=== PATIENT | female | born 1950 | race Caucasian/White ===

== ENCOUNTER 2017-07-08 17:07 | Emergency (ER) | payer MEDICARE, OTHER, SELFPAY ==
[2017-07-08 17:12] VITALS: BP 130/86; PULSE 70; RESP 20; TEMP 36.9; O2SAT 97; BMI 24.7
--- NOTE | 2017-07-08 17:18 | ED_ITS ---
HPI - Chest Pain <JALYN Voss - Last Filed: 07/08/17 21:54> General Chief Complaint: Chest Pain Stated Complaint: cant stop coughing,chest hurts Time Seen by Provider: 07/08/17 17:18 History of Present Illness HPI narrative: 67-year-old female here with a history of having prior pulmonary emboli. Last episode was spring. She reports she has had respiratory complications since that timeframe. She reports that she recently was in the floor for a few weeks and developed a cough approximately 3 weeks ago and has had it since. She reports having productive cough. She denies having fever or chills. She reports that the cough has not resolved at all since she started. She reports that the cough is causing her day of anterior chest wall pain. She denies shortness of breath. She states that she does not have chest pain without the cough. Patient is ambulatory into the emergency room. No nausea or vomiting. No other concerns or complaints. Related Data Home Medications Medication Instructions Recorded Confirmed clonazepam 2 mg PO DAILY 07/08/17 07/08/17 zolpidem 10 mg PO QHS 07/08/17 07/08/17 Previous Rx's Medication Instructions Recorded albuterol sulfate 1 puff INHALATION Q4-6H PRN #8 gram 07/08/17 benzonatate [Tessalon Perles] 100 mg PO TID PRN #20 cap 07/08/17 doxycycline hyclate 100 mg PO BID #14 tab 07/08/17 Allergies Allergy/AdvReac Type Severity Reaction Status Date / Time No Known Drug Allergies Allergy Verified 07/08/17 17:22 Review of Systems <JALYN Voss - Last Filed: 07/08/17 21:54> Constitutional Denies chills, Denies fever(s), Denies lethargy and Denies weakness Eyes Denies change in vision, Denies eye discharge, Denies irritation and Denies loss of vision ENT Ears, Nose, Mouth, and Throat: Denies change in voice, Denies neck pain and Denies sore throat Respiratory Reports cough and Reports pain with cough Gastrointestinal Gastrointestinal: Denies abdominal pain, Denies change in bowel habits, Denies diarrhea, Denies nausea and Denies vomiting Musculoskeletal Denies neck pain Integumentary/Breasts Denies pruritus, Denies erythema, Denies rash and Denies wounds Neurologic Denies loss of vision and Denies weakness Exam <JALYN Voss - Last Filed: 07/08/17 21:54> Initial Vital Signs Initial Vital Signs: Vital Signs Temperature 98.4 F 07/08/17 17:12 Pulse Rate 70 07/08/17 17:12 Respiratory Rate 20 07/08/17 17:12 Blood Pressure 130/86 H 07/08/17 17:12 Pulse Oximetry 97 07/08/17 17:12 Const General: cooperative and well developed Nutritional Appearance: well nourished Orientation: alert, awake, oriented x3 and not confused HENAK Mouth: oral mucosae normal, oropharynx normal and moist mucous membranes Eyes Conjunctivae: conjunctivae normal Sclera: sclerae normal Pupils: PERRL EOM: EOM intact bilaterally Resp Effort & Inspection: normal respiratory effort and able to speak in complete sentences Auscultation: crackles (Right lower feels crackling on inspiration) on the right and no wheezes Cardio Rate: regular rate Rhythm: regular rhythm Heart Sounds: no click, no gallops, no murmurs and no rubs Pulses: normal peripheral pulses Skin General: no rashes or lesions noted, No jaundice and No petechiae <DO Hugh Sosa Last Filed: 07/09/17 03:21> Initial Vital Signs Initial Vital Signs: Vital Signs Temperature 98.4 F 07/08/17 17:12 Pulse Rate 70 07/08/17 17:12 Respiratory Rate 20 07/08/17 17:12 Blood Pressure 130/86 H 07/08/17 17:12 Pulse Oximetry 97 07/08/17 17:12 Course <JALYN Voss - Last Filed: 07/08/17 21:54> Orders Ordered: Discontinued Medications Albuterol/Ipratropium (Duoneb) 3 ml INH NOW ONE Stop: 07/08/17 17:43 Last Admin: 07/08/17 19:22 Dose: 3 ml Vital Signs - 8 hr 07/08/17 19:23 07/08/17 19:37 07/08/17 20:19 Pulse Rate 64 120 H 82 Respiratory Rate 16 20 Blood Pressure [Right Arm] 114/65 115/55 L Pulse Oximetry 100 <DO Hugh Sosa Last Filed: 07/09/17 03:21> Orders Ordered: Discontinued Medications Albuterol/Ipratropium (Duoneb) 3 ml INH NOW ONE Stop: 07/08/17 17:43 Last Admin: 07/08/17 19:22 Dose: 3 ml Vital Signs - 8 hr 07/08/17 19:23 07/08/17 19:37 07/08/17 20:19 Pulse Rate 64 120 H 82 Respiratory Rate 16 20 Blood Pressure [Right Arm] 114/65 115/55 L Pulse Oximetry 100 MDM - Chest Pain <JALYN Voss - Last Filed: 07/08/17 21:54> Lab Data Result diagrams: 07/08/17 17:42 Lab Results 07/08/17 07/08/17 07/08/17 Range/Units 17:42 17:42 17:42 WBC 3.0 L (4.5-11.0) X10^3/uL RBC 4.03 (4.0-5.2) X10^6/uL Hgb 12.7 (12.0-16.0) g/dL Hct 37.5 (36-46) % MCV 93.0 (80-100) fL MCH 31.6 (26-34) PG MCHC 34.0 (30-36) % RDW 14.0 (11.6-14.8) % Plt Count 183 (150-400) X10^3/uL Neut % (Auto) 55.0 (50-75) % Lymph % (Auto) 32.4 (25-40) % [place] % (Auto) 11.6 (3-14) % Eos % (Auto) 0.6 L (2-4) % Baso % (Auto) 0.4 (0-2) % Neut # (Auto) 1700 L (8320-8710) /uL APTT 35 (26.4-36.2) SECONDS D-Dimer 484 H (<231) ng/mL Total Creatine Kinase 48 (30-135) U/L CK-MB (CK-2) TNP Troponin I < 0.012 (0.01-0.034) ng/mL Imaging Data Chest x-ray: Radiologist's impression: PROCEDURE: XR CHEST 2V INDICATIONS: Cough for last few weeks TECHNIQUE: 2 views of the chest were acquired. COMPARISON: None. FINDINGS: Surgical changes and devices: None. Lungs and pleura: No pleural effusions or pneumothorax. Lungs are clear. Mediastinum: Mediastinal contours are normal. Heart size is normal. Bones and chest wall: No suspicious bony abnormalities. Bilateral breast prostheses are noted with rim calcification, left greater than right. Soft tissues appear unremarkable. IMPRESSION: 1. No acute cardiopulmonary disease. 2. Bilateral breast prostheses with rim calcification, left and right. Dictated by: Ming Geiger M.D. on 07/08/2017 at 18:37 Approved by: Ming Geiger M.D. on 07/08/2017 at 18:38 ECG Data Interpretation: EKG shows normal sinus rhythm with no ST elevation or depression. No ectopy. Ventricular rate is 66. Pr interval 146. QRS duration is 75. QT of 399 MDM Narrative Medical decision making narrative: Chest x-ray was obtained was negative for any acute findings. D-dimer resulted at for a for below age adjusted D-dimer of level of 660. EKG shows sinus rhythm with no ectopy or ST elevation or depression. Cardiac enzymes were obtained were negative. Other lab results were unremarkable. Signs and symptoms presents as a bronchitis however due to length of symptoms will empirically treat for walking pneumonia with doxycycline. Sputum culture is pending. She is encouraged to follow up with the primary care provider next few days for re-evaluation and continue pursuing a paramedic rn referral. For any worsening symptoms return to the emergency room. <Gilson Mckeon DO - Last Filed: 07/09/17 03:21> Lab Data Lab Results 07/08/17 07/08/17 07/08/17 Range/Units 17:42 17:42 17:42 WBC 3.0 L (4.5-11.0) X10^3/uL RBC 4.03 (4.0-5.2) X10^6/uL Hgb 12.7 (12.0-16.0) g/dL Hct 37.5 (36-46) % MCV 93.0 (80-100) fL MCH 31.6 (26-34) PG MCHC 34.0 (30-36) % RDW 14.0 (11.6-14.8) % Plt Count 183 (150-400) X10^3/uL Neut % (Auto) 55.0 (50-75) % Lymph % (Auto) 32.4 (25-40) % [place] % (Auto) 11.6 (3-14) % Eos % (Auto) 0.6 L (2-4) % Baso % (Auto) 0.4 (0-2) % Neut # (Auto) 1700 L (6413-2905) /uL APTT 35 (26.4-36.2) SECONDS D-Dimer 484 H (<231) ng/mL Total Creatine Kinase 48 (30-135) U/L CK-MB (CK-2) TNP Troponin I < 0.012 (0.01-0.034) ng/mL Discharge Plan Departure Patient Disposition: Home, Self-Care Clinical Impression: Atypical pneumonia Discharge Date/Time: 07/08/17 20:00 Interventions: ED Discharge Assessment Last Done: 07/08/17 20:23 Instructions: DI for Cough -- Adult Activity Restrictions/Additional Instructions: Laboratory results and imaging today were unremarkable. Due to length of symptoms and a productive cough will empirically treat for pneumonia. You have been placed on antibiotic use as directed. Follow up with primary care provider in the next few days for re-evaluation. For any worsening symptoms return to the emergency room. Prescriptions: New doxycycline hyclate 100 mg tablet 100 mg PO BID Qty: 14 RF: 0 albuterol sulfate 90 mcg/actuation HFA aerosol inhaler 1 puff INHALATION Q4-6H PRN (Reason: shortness of breath or wheezing) Qty: 8 RF: 0 benzonatate [Tessalon Perles] 100 mg capsule 100 mg PO TID PRN (Reason: cough) Qty: 20 RF: 0 No Action clonazepam 2 mg tablet 2 mg PO DAILY RF: 0 zolpidem 10 mg tablet 10 mg PO QHS RF: 0 Referrals: Rich Jorge MD [Non-Staff] - <Gilson Mckeon DO - Last Filed: 07/09/17 03:21> Cosign ED Attending Shiraature Attestation: I was immediately available in the department for consultation. Documentation has been reviewed. I agree with assessment and plan.
[2017-07-08 17:30] VITALS: BP 111/67; PULSE 66; O2SAT 94
--- NOTE | 2017-07-08 17:41 | DI.RAD.S_ITS ---
PROCEDURE: XR CHEST 2V INDICATIONS: Cough for last few weeks TECHNIQUE: 2 views of the chest were acquired. COMPARISON: None. FINDINGS: Surgical changes and devices: None. Lungs and pleura: No pleural effusions or pneumothorax. Lungs are clear. Mediastinum: Mediastinal contours are normal. Heart size is normal. Bones and chest wall: No suspicious bony abnormalities. Bilateral breast prostheses are noted with rim calcification, left greater than right. Soft tissues appear unremarkable. IMPRESSION: 1. No acute cardiopulmonary disease. 2. Bilateral breast prostheses with rim calcification, left and right. Dictated by: Ming Geiger M.D. on 07/08/2017 at 18:37 Approved by: Ming Geiger M.D. on 07/08/2017 at 18:38
[2017-07-08 18:16] LABS: Add Manual Diff / Slide Review NO; Basophils Percent Auto 0.4 % (0-2); Eosinophils Percent Auto 0.6 % (2-4); Hematocrit 37.5 % (36-46); Hemoglobin 12.7 g/dL (12.0-16.0); Lymphocytes Percent Auto 32.4 % (25-40); Mean Corpuscular Hemoglobin 31.6 PG (26-34); Monocytes Percent Auto 11.6 % (3-14); Neutrophils Absolute Auto 1700 /uL (3000-5900); Platelet Count 183 X10^3/uL (150-400); Red Blood Cell Count 4.03 X10^6/uL (4.0-5.2)
[2017-07-08 18:25] LABS: D Dimer 484 ng/mL (<231); PTT Partial Thromboplastin Tim 35 SECONDS (26.4-36.2)
[2017-07-08 18:27] LABS: Creatine Kinase 48 U/L (30-135)
[2017-07-08 18:30] VITALS: BP 121/65; PULSE 67; RESP 15; O2SAT 98
[2017-07-08 18:41] LABS: Troponin I < 0.012 ng/mL (0.01-0.034)
[2017-07-08] MEDS: ALBUTEROL/IPRATROPIUM 3 ML AMPUL INH (19:22)
[2017-07-08 19:23] VITALS: PULSE 64; RESP 16
[2017-07-08 19:37] VITALS: BP 114/65; PULSE 120
[2017-07-08 20:19] VITALS: BP 115/55; PULSE 82; RESP 20; O2SAT 100
== END 2017-07-08 20:00 | disposition home or self-care (01) ==
PROVIDERS: Emergency Provider Nurse Practitioner Family
DX: J18.9 Pneumonia, unspecified organism (principal)
CPT/HCPCS: 36591; 71046; 82550; 84484; 85025; 85379; 85730; 87070; 87205; 93005; 94640; 99283; 99285

== ENCOUNTER → 2019-10-18 13:46 | Outpatient (CLI) | payer MEDICARE, OTHER, SELFPAY ==
--- NOTE | 2019-10-18 | DI.MRI.S_ITS ---
PROCEDURE: MR THORACIC SPINE WO CON INDICATIONS: Dorsalgia, unspecified TECHNIQUE: Noncontrast sagittal T1 spine echo and T2 fast spin echo, sagittal STIR, axial T1 and T2 fast spin echo through the thoracic spine. COMPARISON: None. FINDINGS: Image quality: Excellent. Alignment and Curvature: There is normal bony alignment. Bone Marrow: Marrow is of normal overall signal except for presence of a small vertebral body hemangioma at the posterior midline inferiorly at T6. No acute vertebral body compression fractures. No prior chronic compression fracture is found. Mild intervertebral degenerative disc disease is noted as indicated by slight disc height reduction and disc desiccation over the middle and lower thirds of the thoracic spine. No area of nerve root impingement is found. Spinal Cord: Visualized spinal cord is normal in size and signal. Paraspinous Soft Tissues: No paravertebral masses. Miscellaneous: On axial images, central canal and foramina appear widely patent at all scanned levels. IMPRESSION: A mild degree of degenerative disc height reduction and disc desiccation over the middle and lower thirds of the thoracic spine is present. No disc bulge or herniation, no focal nerve root impingement. Incidental note is made of a small vertebral body hemangioma at the posterior inferior middle 3rd T6 vertebral body marrow space, incidental finding. Dictated by: Cristhian Rizvi M.D. on 10/18/2019 at 15:15 Approved by: Cristhian Rizvi M.D. on 10/18/2019 at 15:19
== END ==
PROVIDERS: PCP Physician Assistant; Referring Provider Physician Assistant; Visit Provider Physical Medicine & Rehabilitation Pain Medicine
DX: M54.9 Dorsalgia, unspecified (principal); M51.34 Other intervertebral disc degeneration, thoracic region
CPT/HCPCS: 72146

== ENCOUNTER 2022-08-02 15:29 | Emergency (ER) | payer MEDICARE, OTHER, SELFPAY ==
[2022-08-02 15:43] VITALS: BP 150/69; PULSE 86; RESP 16; TEMP 36.4; O2SAT 95; BMI 34.5
--- NOTE | 2022-08-02 15:51 | DI.RAD.S_ITS ---
PROCEDURE: XR CHEST 1V INDICATIONS: Shortness of breath TECHNIQUE: One view of the chest was acquired. COMPARISON: [facility], CR, XR CHEST 2V, 07/08/2017, 17:28. FINDINGS: Surgical changes and devices: Stable over time.. Lungs and pleura: Lungs are clear. No pleural effusions or pneumothorax. Mediastinum: Mediastinal contours appear normal. Heart size is normal. Bones and chest wall: No suspicious bony lesions. Overlying soft tissues appear unremarkable. IMPRESSION: Unchanged over time, source of current shortness of breath symptoms is not seen. Dictated by: Cristhian Rizvi M.D. on 08/02/2022 at 16:32 Approved by: Cristhian Rizvi M.D. on 08/02/2022 at 16:32
[2022-08-02 16:56] LABS: INR 1.5 (0.9-1.3); Prothrombin Time 17.4 SECONDS (10.1-12.7)
[2022-08-02 16:57] LABS: Add Manual Diff / Slide Review NO; Basophils Absolute Auto 0 /uL (0-100); Basophils Percent Auto 0.7 % (0-2); Eosinophils Absolute Auto 100 /uL (0-450); Eosinophils Percent Auto 1.8 % (2-4); Hematocrit 37.5 % (36-46); Hemoglobin 12.6 g/dL (12.0-16.0); Lymphocytes Absolute Auto 1400 /uL (1100-4500); Lymphocytes Percent Auto 27.4 % (25-40); Mean Corpuscular HGB Conc 33.6 % (30-36); Mean Corpuscular Hemoglobin 32.6 PG (26-34); Mean Corpuscular Volume 97.1 fL (80-100); Monocytes Absolute Auto 600 /uL (0-900); Monocytes Percent Auto 11.5 % (3-14); Neutrophils Absolute Auto 3000 /uL (1500-7000); Neutrophils Percent Auto 58.6 % (50-75); Platelet Count 245 X10^3/uL (150-400); Red Blood Cell Count 3.86 X10^6/uL (4.0-5.2); Red Cell Distribution Width 14.7 % (11.6-14.8); White Blood Cell Count 5.2 X10^3/uL (4.5-11.0)
[2022-08-02 17:01] LABS: Alanine Aminotransferase 222 IU/L (<35); Albumin 4.4 g/dL (3.5-5.0); Albumin Globulin Ratio 1.3 (1.0-2.8); Alkaline Phosphatase 104 U/L (38-126); Aspartate Aminotransferase 155 IU/L (14-36); BUN Creatinine Ratio 23.7 (6-22); Bilirubin Total 0.6 mg/dL (0.2-1.3); Blood Urea Nitrogen 18 mg/dL (7-17); Calcium 9.7 mg/dL (8.4-10.2); Carbon Dioxide 27 mmol/L (22-32); Chloride 100 mmol/L (98-107); Estimated Glomerular Filt Rate > 60 mL/min (>60); Globulin 3.3 g/dL (1.7-4.1); Glucose 88 mg/dL (80-110); HEMOLYSIS 28 (0-50); Sodium 138 mmol/L (137-145); Total Protein 7.7 g/dL (6.3-8.2)
[2022-08-02 17:02] LABS: Lactate (Lactic Acid) 0.9 mmol/L (0.7-2.1)
[2022-08-02 17:13] LABS: NT-proBNP (BNP-Adult 18+) 28 pg/mL (<125); Troponin I < 0.012 ng/mL (0.01-0.034)
[2022-08-02 17:22] VITALS: PULSE 80; RESP 32; O2SAT 96
--- NOTE | 2022-08-02 17:29 | PC.NURSE ---
iv inserted by another nurse
[2022-08-02 17:32] VITALS: PULSE 91; O2SAT 94
--- NOTE | 2022-08-02 17:36 | PC.NURSE ---
patient states that she had a prescription for lasix that she got for retaining water' 2 years ago. She feels like she has been retaining water so she took 20 mg lasix at 1500 today. She has not been coughing but does sate that she has been getting progressively more sob on exertion over the last 3 days
[2022-08-02 17:51] LABS: D Dimer 410 ng/ml (<500)
[2022-08-02 18:27] LABS: Bacteria Urine None Seen; Culture Indicated Urine Cult Not Indicated; RBC Urine None Seen (0-5/HPF); Squamous Epithelial Cell Urine None Seen (0-5/HPF); WBC Urine None Seen (0-5/HPF)
--- NOTE | 2022-08-02 18:45 | ED_ITS ---
HPI - SOB/Dyspnea General Chief Complaint: Shortness of Breath/Dyspnea Stated Complaint: Not urinating, SOB, Elevated pulse Time Seen by Provider: 08/02/22 17:38 Source: patient and family Mode of arrival: Ambulatory Limitations: no limitations History of Present Illness HPI Narrative: 72-year-old female nonsmoker presents with her in the chief complaint of feeling generally unwell for the past few days and primary concern is that of not urinating for the past day or so. She and her both underwent a rather significant dietary change about 10 days ago and initially she was feeling quite well, pushing fluids but she was on a keto diet and over the past few days became short of breath with exertion had difficulty urinating Related Data Home Medications Medication Instructions Recorded Confirmed clonazepam 2 mg tablet 2 mg PO DAILY 07/08/17 07/08/17 zolpidem 10 mg tablet 10 mg PO QHS 07/08/17 07/08/17 Previous Rx's Medication Instructions Recorded albuterol sulfate 90 mcg/actuation 1 puff inhalation Q4-6H PRN 07/08/17 aerosol inhaler shortness of breath or wheezing #8 grams benzonatate 100 mg capsule 100 mg PO TID PRN cough #20 caps 07/08/17 (Bettie Mueller) doxycycline hyclate 100 mg tablet 100 mg PO BID #14 tabs 07/08/17 Allergies Allergy/AdvReac Type Severity Reaction Status Date / Time acetaminophen AdvReac Intermediate ITCHING Verified 08/02/22 15:50 Opioids - Morphine Analogues AdvReac Intermediate Nausea Verified 08/02/22 15:50 ibuprofen AdvReac Unknown Verified 08/02/22 15:50 Review of Systems Review of Systems Narrative: GENERAL: Denies chills, fatigue, malaise, fever, sweats. HEENT: Denies sinus pain, ear pain, sore throat, difficulty swallowing, dizziness. RESPIRATORY: See HPI CARDIOVASCULAR: Denies chest pain, palpitations, orthopnea, edema, GASTROINTESTINAL: Denies nausea, vomiting, abdominal pain, diarrhea, constipation, melena. : Denies dysuria, frequency, incontinence, hematuria, urinary retention. MUSCULOSKELETAL: denies weakness, joint pain, or bony pain SKIN: Denies rash, skin lesions, or other NEUROLOGIC: Denies weakness, headache, numbness, change in speech, confusion, seizures, incoordination. PSYCHIATRIC: No concerning psychosocial issues. 12 point review of systems is negative except for those stated above Patient History Medical History (Updated 08/02/22 @ 19:04 by Gilson Mckeon DO) Pulmonary embolus Social History Smoking Status: Never smoker Smoking Status: Never smoker alcohol intake frequency: 0-2 drinks per day Substance Use Type: does not use Exam Narrative Exam Narrative: GENERAL: [73] year old patient appears stated age. Well-developed patient, in mild distress. HEAD: Atraumatic. Normocephalic. EYES: Pupils equal round and reactive. Extraocular motions intact. No scleral icterus. No injection or drainage. ENT: Nose without bleeding, purulent drainage. Throat without erythema, tonsillar hypertrophy or exudate. Airway patent. NECK: Trachea midline. Non tender CARDIOVASCULAR: Regular rate and rhythm without murmurs, gallops, or rubs. RESPIRATORY: Clear to auscultation. Breath sounds equal bilaterally. No wheezes, rales, or rhonchi. GASTROINTESTINAL: Abdomen soft, non-tender, nondistended. EXTREMITIES: No edema or joint tenderness. BACK: Nontender without deformity or crepitance. No flank tenderness. NEURO: AOx3. SKIN: No rash or erythema of visible areas Initial Vital Signs Initial Vital Signs: Vital Signs Temperature 97.6 F 08/02/22 15:43 Pulse Rate 86 08/02/22 15:43 Respiratory Rate 16 08/02/22 15:43 Blood Pressure 150/69 H 08/02/22 15:43 Pulse Oximetry 95 08/02/22 15:43 Oxygen Delivery Method Room Air 08/02/22 15:43 Course Course Course Narrative: Patient feeling significant improvement after creating upwards of 400 cc of urine. She is been ambulatory to the restroom, no ongoing shortness of breath, no dizziness, weakness or lightheadedness Orders Ordered: ED Orders 08/02/22 15:07 Urine Microscopic Stat 08/02/22 15:51 XR chest 1V Stat Measure peak expiratory flow ONCE RT Consult Eval and Treat NOW 08/02/22 16:06 EKG-12 Lead Stat 08/02/22 16:40 Complete Blood Count AUTO DIFF Stat Comprehensive Metabolic Panel Stat D Dimer Stat Lactate (Lactic Acid) Stat NT-proBNP (BNP-Adult 18+) Stat Prothrombin Time INR Stat Troponin I Stat Vital Signs Vital signs: Vital Signs - 8 hr 08/02/22 19:37 Pulse Rate 82 Respiratory Rate 14 Blood Pressure 137/63 Pulse Oximetry 96 Oxygen Delivery Method Room Air MDM - SOB/Dyspnea Lab Data 08/02/22 16:40 08/02/22 16:40 Labs: Lab Results 08/02/22 08/02/22 08/02/22 Range/Units 15:07 16:40 16:40 WBC 5.2 (4.5-11.0) X10^3/uL RBC 3.86 L (4.0-5.2) X10^6/uL Hgb 12.6 (12.0-16.0) g/dL Hct 37.5 (36-46) % MCV 97.1 (80-100) fL MCH 32.6 (26-34) PG MCHC 33.6 (30-36) % RDW 14.7 (11.6-14.8) % Plt Count 245 (150-400) X10^3/uL Neut % (Auto) 58.6 (50-75) % Lymph % (Auto) 27.4 (25-40) % [place] % (Auto) 11.5 (3-14) % Eos % (Auto) 1.8 L (2-4) % Baso % (Auto) 0.7 (0-2) % Neut # (Auto) 3000 (3000-2911) /uL Lymph # (Auto) 1400 (7931-9202) /uL [place] # (Auto) 600 (0-900) /uL Eos # (Auto) 100 (0-450) /uL Baso # (Auto) 0 (0-100) /uL PT 17.4 H (10.1-12.7) SECONDS INR 1.5 H (0.9-1.3) D-Dimer (<500) ng/ml Sodium (137-145) mmol/L Potassium (3.4-5.1) mmol/L Chloride (98-107) mmol/L Carbon Dioxide (22-32) mmol/L BUN (7-17) mg/dL Creatinine (0.52-1.04) mg/dL Estimated GFR (>60) mL/min BUN/Creatinine Ratio (6-22) Glucose (80-110) mg/dL Lactate (0.7-2.1) mmol/L Calcium (8.4-10.2) mg/dL Total Bilirubin (0.2-1.3) mg/dL AST (14-36) IU/L ALT (<35) IU/L Alkaline Phosphatase (38-126) U/L Troponin I (0.01-0.034) ng/mL NT-Pro-B Natriuret Pep (<125) pg/mL Total Protein (6.3-8.2) g/dL Albumin (3.5-5.0) g/dL Globulin (1.7-4.1) g/dL Albumin/Globulin Ratio (1.0-2.8) Urine RBC None seen (0-5/HPF) Urine WBC None seen (0-5/HPF) Ur Squamous Epith Cells None seen (0-5/HPF) Urine Bacteria None seen (None) Ur Culture Indicated? Cult not indicated 08/02/22 08/02/22 08/02/22 Range/Units 16:40 16:40 16:40 WBC (4.5-11.0) X10^3/uL RBC (4.0-5.2) X10^6/uL Hgb (12.0-16.0) g/dL Hct (36-46) % MCV (80-100) fL MCH (26-34) PG MCHC (30-36) % RDW (11.6-14.8) % Plt Count (150-400) X10^3/uL Neut % (Auto) (50-75) % Lymph % (Auto) (25-40) % [place] % (Auto) (3-14) % Eos % (Auto) (2-4) % Baso % (Auto) (0-2) % Neut # (Auto) (6519-5878) /uL Lymph # (Auto) (2660-5994) /uL [place] # (Auto) (0-900) /uL Eos # (Auto) (0-450) /uL Baso # (Auto) (0-100) /uL PT (10.1-12.7) SECONDS INR (0.9-1.3) D-Dimer 410 (<500) ng/ml Sodium 138 (137-145) mmol/L Potassium 4.0 (3.4-5.1) mmol/L Chloride 100 (98-107) mmol/L Carbon Dioxide 27 (22-32) mmol/L BUN 18 H (7-17) mg/dL Creatinine 0.76 (0.52-1.04) mg/dL Estimated GFR > 60 (>60) mL/min BUN/Creatinine Ratio 23.7 H (6-22) Glucose 88 (80-110) mg/dL Lactate 0.9 (0.7-2.1) mmol/L Calcium 9.7 (8.4-10.2) mg/dL Total Bilirubin 0.6 (0.2-1.3) mg/dL AST 155 H (14-36) IU/L ALT 222 H (<35) IU/L Alkaline Phosphatase 104 (38-126) U/L Troponin I < 0.012 (0.01-0.034) ng/mL NT-Pro-B Natriuret Pep 28 (<125) pg/mL Total Protein 7.7 (6.3-8.2) g/dL Albumin 4.4 (3.5-5.0) g/dL Globulin 3.3 (1.7-4.1) g/dL Albumin/Globulin Ratio 1.3 (1.0-2.8) Urine RBC (0-5/HPF) Urine WBC (0-5/HPF) Ur Squamous Epith Cells (0-5/HPF) Urine Bacteria (None) Ur Culture Indicated? Urine Dip Bedside Urine Glucose Negative Bedside Urine Bilirubin - Negative Bedside Urine Ketone ++ 40 Urine Specific [place] 1.015 Bedside Urine Occult Blood - Negative Bedside Urine pH 6.0 Bedside Urine Protein - Negative Bedside Urine Urobilinogen - Negative Bedside Urine Nitrite - Negative Bedside Urine Leukocytes - Negative Esterase MDM Narrative Medical decision making narrative: [72] year old patient presents with generally feeling unwell with decreased urine output over the course of at least the day, also leg swelling and SOB with exertion Multiple etiologies for patient's symptoms considered including, but not limited to: [dehydration vs. CHF vs. other Prior Charts reviewed in our EMR Primary Historian: patient Labs reviewed and interpreted by myself: No leukocytosis or left shift, no signs of anemia, D-dimer below age corrected cutoff, no indication to pursue PE as diagnosis, primary electrolytes and renal function within normal. LFTs slightly elevated, likely consequence of dietary change Imaging reviewed: No acute process Patient's symptoms improved over duration of stay with above-stated therapies. Patient is ambulatory through the department and asymptomatic. She states she felt a significant if not complete resolution symptoms after urinating. She is not dizzy nor weak or lightheaded. She has no abdominal pain, jaundice, no fever Findings and discharge diagnosis discussed with patient/family followed by zahira tolliver of understanding Return precautions discussed with patient/family whom verbalize understanding of diagnosis and plan Discharge Plan Departure Patient Disposition: Home Clinical Impression: Elevated liver transaminase level Instructions: Balanced Diet Activity Restrictions/Additional Instructions: *You have been diagnosed with [various symptoms likely related to dietary change. As we discussed he had a very reassuring history and physical exam and labs are reassuring. You had a slight elevation in your liver numbers and urine did demonstrate some ketones, both of which likely related to your dietary change.] *What to do: *Please continue to take your regular medications as directed. [ ] New medication prescriptions sent to your pharmacy: [ ] [ ] New medication written as a paper prescription [ x] No new medications given *Please follow up with your primary care provider in 2-3 days, call for an appointment. Let them know you were seen in the Emergency Department and that we ask that you be seen in follow up. We will electronically transmit a record of today's note if your PCP is in our system *If you do not have a primary care provider please contact the [facility] Resource line at [phone]. They will ask some questions about your medical history and help get you set up with a doctor in the community. *Return to Emergency Department if you should have any new, worsening or concerning symptoms, such as [fever greater than 101 F, shaking chills, worsening pain, persistent vomiting or other bothersome symptoms] Prescriptions: No Action clonazepam 2 mg tablet 2 mg PO DAILY zolpidem 10 mg tablet 10 mg PO QHS doxycycline hyclate 100 mg tablet 100 mg PO BID Qty: 14 0RF albuterol sulfate 90 mcg/actuation HFA aerosol inhaler 1 puff INHALATION Q4-6H PRN (Reason: shortness of breath or wheezing) Qty: 8 0RF Rx Instructions: administer with spacer benzonatate [Tessalon Perles] 100 mg capsule 100 mg PO TID PRN (Reason: cough) Qty: 20 0RF Referrals: Denise German PA-C [Primary Care Provider] - Stand Alone Forms: Patient Portal/API
[2022-08-02 19:37] VITALS: BP 137/63; PULSE 82; RESP 14; O2SAT 96
== END 2022-08-02 19:40 | disposition home or self-care (01) ==
PROVIDERS: Emergency Medicine; Emergency Provider Emergency Medicine; PCP Physician Assistant
DX: R74.01 Elevation of levels of liver transaminase levels (principal); R06.02 Shortness of breath
CPT/HCPCS: 71045; 80053; 81003; 81015; 83605; 83880; 84484; 85025; 85379; 85610; 93005; 99283; 99284

== ENCOUNTER → 2022-09-17 12:43 | Outpatient (CLI) | payer MEDICARE, OTHER, SELFPAY ==
--- NOTE | 2022-09-17 12:46 | DI.MRI.S_ITS ---
PROCEDURE: MR ANKLE LT WO CON INDICATIONS: left peroneal tendon tear TECHNIQUE: Noncontrast sagittal T1 spin echo and T2 fast spin echo with fat saturation, axial proton density fast spin echo and T2 fast spin echo with fat saturation, coronal T1 spin echo and T2 fast spin echo with fat saturation through the ankle/hindfoot. COMPARISON: None. FINDINGS: Image quality: Excellent. Bones and joints: Mild midfoot and hindfoot joint osteoarthritic changes are seen with joint space narrowing, subchondral sclerosis and small marginal osteophyte formation. No fracture or dislocation. Small tibiotalar joint effusion is seen. Tiny 2 mm osteochondral injury involving lateral weight-bearing portion of talar dome is seen. Medial structures: The posterior tibialis, flexor digitorum longus, and flexor hallucis longus tendons are intact. The posterior tibial neurovascular bundle appears normal within the tarsal tunnel, without extrinsic mass effect. The deltoid ligament and spring ligament are thickened. Lateral structures: The anterior talofibular, calcaneofibular, and posterior talofibular ligaments appear thickened with intrasubstance T2 hyperintense signal particularly involving anterior talofibular ligament.. More superiorly, the anterior and posterior tibiofibular ligaments appear intact, as is the intermalleolar ligament. The tibiofibular syndesmosis is normal in width at 2 mm or less. Markedly attenuated appearance of peroneus brevis tendon at the level of calcaneocuboid joint with a few intact tendon fibers extending to its 5th metatarsal base insertion. The peroneus longus tendon is mildly thickened at the level calcaneocuboid joint. Adjacent bony peroneal tubercle and retrotrochlear prominence are normal in size. The sinus tarsi demonstrates normal fatty signal, without edema, fibrosis, or cyst formation. Visualized sinus tarsi components (cervical ligament, interosseous talocalcaneal ligament, roots of the inferior extensor retinaculum) appear normal. The calcaneonavicular and calcaneocuboid components of the bifurcate ligament appear intact. The dorsal calcaneocuboid ligament appears intact. Anterior structures: The tibialis anterior, extensor hallucis longus, and extensor digitorum longus tendons appear intact. The dorsal talonavicular ligament appears intact. Posterior and plantar structures: Achilles tendon is intact. Medial and lateral bands of the plantar fascia are of normal thickness. No abductor digiti quinti muscle atrophy to suggest Arguelles neuropathy. IMPRESSION: 1. Mild midfoot and hindfoot joint osteoarthritis. No fracture or dislocation. Tiny osteochondral injury involving lateral weight-bearing portion of talar dome. Small tibiotalar joint effusion, no loose bodies. 2. Suggestion of moderate to high-grade partial-thickness tear involving distal peroneus brevis tendon extending to its 5th metatarsal base insertion. No definite full-thickness tendon rupture. Tendinosis involving peroneus longus tendon as above. 3. Low-grade medial ankle ligament sprain. Moderate grade intrasubstance partial-thickness tear involving anterior talofibular ligament. Low-grade sprain/intrasubstance partial-thickness tear involving posterior talofibular ligament and calcaneofibular ligament. Dictated by: Blaise Horowitz M.D. on 09/17/2022 at 18:21 Approved by: Blaise Horowitz M.D. on 09/17/2022 at 18:25
== END ==
PROVIDERS: PCP Internal Medicine; Referring Provider Orthopaedic Surgery Foot and Ankle Surgery; Visit Provider Orthopaedic Surgery Foot and Ankle Surgery
DX: S93.492A Sprain of other ligament of left ankle, initial encounter (principal); S93.412A Sprain of calcaneofibular ligament of left ankle, initial encounter; S86.312D Strain of muscle(s) and tendon(s) of peroneal muscle group at lower leg level, left leg, subsequent encounter; M19.072 Primary osteoarthritis, left ankle and foot; M25.475 Effusion, left foot
CPT/HCPCS: 73721

== ENCOUNTER 2022-09-26 16:37 | Emergency (ER) | payer MEDICARE, OTHER, SELFPAY ==
[2022-09-26 16:58] VITALS: BP 119/58; PULSE 55; RESP 20; TEMP 36.6; O2SAT 96; BMI 33.3
--- NOTE | 2022-09-26 17:05 | DI.RAD.S_ITS ---
PROCEDURE: XR KNEE LT 3V INDICATIONS: GLF with L knee pain TECHNIQUE: 3 views of the knee were acquired. COMPARISON: [facility], CT, CT HEAD/BRAIN WO [facility], 09/26/2022, 17:23. [facility], CT, CT CERVICAL SPINE WO [facility], 09/26/2022, 17:23. FINDINGS: Bones: No fractures or dislocations. No suspicious bony lesions. There is at least moderate medial femorotibial joint space narrowing seen, with associated remodeling changes including subchondral sclerosis and osteophyte formation along the jointline. Milder degenerative changes are seen elsewhere. Soft tissues: There is a moderate to large joint effusion. No suspicious soft tissue calcifications. IMPRESSION: Moderate to large joint effusion. No focal bony abnormality is identified by plain film. Focal medial femorotibial joint space narrowing. If it would be helpful for clinical management decision making, please consider a dedicated, scheduled knee MRI for further evaluation (assuming that there is no contraindication). Dictated by: Wilver Hardy M.D. on 09/26/2022 at 16:56 Approved by: Wilver Hardy M.D. on 09/26/2022 at 16:57
--- NOTE | 2022-09-26 17:15 | DI.CT.S_ITS ---
PROCEDURE: CT HEAD/BRAIN WO CON INDICATIONS: fall on xeralto TECHNIQUE: Noncontrast 4.5 mm thick angled axial sections acquired from the foramen magnum to the vertex, with coronal and sagittal reformats. For radiation dose reduction, the following was used: automated exposure control, adjustment of mA and/or kV according to patient size. COMPARISON: [facility], CR, XR KNEE LT 3V, 09/26/2022, 17:14. [facility], CT, CT CERVICAL SPINE WO CON, 09/26/2022, 17:23. FINDINGS: Image quality: Mild streak artifact can be seen through the skull base. CSF spaces: Basal cisterns are patent. No extra-axial fluid collections. The ventricles are symmetric in size and shape. Brain: No intracranial bleeds or masses. There is cerebral volume loss for age, with resultant ventricular and sulcal prominence. There are periventricular and deep white matter chronic small vessel ischemic changes. There is intracranial internal carotid artery atherosclerosis. Skull and face: Calvarium and visualized facial bones appear intact, without suspicious lesions. Sinuses: Visualized sinuses and mastoids are clear. IMPRESSION: No acute intracranial hemorrhage is seen. No acute intracranial process is seen. Dictated by: Wilver Hardy M.D. on 09/26/2022 at 16:59 Approved by: Wilver Hardy M.D. on 09/26/2022 at 17:00
--- NOTE | 2022-09-26 17:15 | DI.CT.S_ITS ---
PROCEDURE: CT CERVICAL SPINE WO CON INDICATIONS: fall on xeralto TECHNIQUE: Noncontrast 3 mm thick sections acquired from the skull base to the T4 level. Sagittal and coronal reformats were then constructed. For radiation dose reduction, the following was used: automated exposure control, adjustment of mA and/or kV according to patient size. COMPARISON: [facility], CR, XR KNEE LT 3V, 09/26/2022, 17:14. [facility], CT, CT HEAD/BRAIN WO CON, 09/26/2022, 17:23. FINDINGS: Image quality: This examination is somewhat limited by quantum mottle artifact. Bones: No fractures or dislocations. Visualized superior ribs are intact. There is overall straightening of the normal cervical lordosis. Focal degenerative change is seen involving the C1-C2 interface anteriorly. There is [id number] disc space narrowing seen at C5-C6, with moderate disc space narrowing at C6-C7. Endplate irregularity and sclerosis are seen, which are worst at C6-C7. Several levels of posteriorly directed endplate osteophytes are seen, including at C5-C6. Soft tissues: Prevertebral soft tissues are normal in thickness. No paravertebral hematomas. No apical pneumothoraces. IMPRESSION: Negative for acute cervical spine fracture. Cervical spine degenerative changes are seen, which are worst inferiorly. Dictated by: iWlver Hardy M.D. on 09/26/2022 at 16:57 Approved by: Wilver Hardy M.D. on 09/26/2022 at 16:59
[2022-09-26 20:08] VITALS: PULSE 67; O2SAT 97
[2022-09-26 20:09] VITALS: BP 188/86; PULSE 61; PULSE 63; RESP 18; O2SAT 97; O2SAT 99
--- NOTE | 2022-09-26 20:11 | DI.CT.S_ITS ---
PROCEDURE: CT KNEE LEFT WITHOUT CON INDICATIONS: left knee pain TECHNIQUE: Noncontrast 1-1.5 mm axial sections acquired from the mid-patella to the proximal tibia, with coronal and sagittal reformats. COMPARISON: [facility], CR, XR KNEE LT 3V, 09/26/2022, 17:14. FINDINGS: Image quality: Excellent. Bones: There is a minimally displaced patellar fracture. Remaining visualized osseous structures appear intact. There is tricompartmental osteophytosis. Severe joint space narrowing demonstrated in the medial compartment with subchondral sclerosis and subchondral cystic changes. There is moderate joint space narrowing in the lateral compartment. Soft tissues: There is a moderate to large joint effusion with a small lipohemarthrosis. The quadriceps and patellar tendons appear intact. Mild thickening of the proximal patellar tendon is suggestive of tendinopathy. There is mild prepatellar soft tissue swelling. The visualized musculature appears preserved. IMPRESSION: 1. Minimally displaced patellar fracture. 2. Moderate to large joint effusion with a small lipohemarthrosis. 3. Tricompartmental osteoarthritic changes including severe joint space narrowing in the medial compartment. Dictated by: Dillan Mayo M.D. on 09/26/2022 at 21:53 Approved by: Dillan Mayo M.D. on 09/26/2022 at 21:56
[2022-09-26 20:30] VITALS: PULSE 56; RESP 20; O2SAT 98
--- NOTE | 2022-09-26 20:32 | ED.FALL ---
HPI - Fall General Chief Complaint: Trauma Stated Complaint: Fall on thinners Time Seen by Provider: 09/26/22 20:32 Source: patient Mode of arrival: Ambulatory History of Present Illness HPI Narrative: Patient is a 72-year-old female presenting today after mechanical ground level fall. She is on Xarelto with a history of pulmonary embolisms. She reports that she was at a luncheon with her friend she was walking back to a chair she did not see that a foot was sticking out she tripped and fell. She is complaining mostly of left knee pain and swelling. She did hit her head in her chin no loss of consciousness nausea vomiting. No neck pain no chest pain or shortness of breath. No other injuries. Related Data Home Medications Medication Instructions Recorded Confirmed clonazepam 2 mg tablet 2 mg PO DAILY 07/08/17 07/08/17 zolpidem 10 mg tablet 10 mg PO QHS 07/08/17 07/08/17 Previous Rx's Medication Instructions Recorded albuterol sulfate 90 mcg/actuation 1 puff inhalation Q4-6H PRN 07/08/17 aerosol inhaler shortness of breath or wheezing #8 grams benzonatate 100 mg capsule 100 mg PO TID PRN cough #20 caps 07/08/17 (Bettie Mueller) doxycycline hyclate 100 mg tablet 100 mg PO BID #14 tabs 07/08/17 Allergies Allergy/AdvReac Type Severity Reaction Status Date / Time acetaminophen AdvReac Intermediate ITCHING Verified 09/26/22 17:04 Opioids - Morphine Analogues AdvReac Intermediate Nausea Verified 09/26/22 17:04 ibuprofen AdvReac Unknown Gastrointestinal Verified 09/26/22 17:04 Upset Review of Systems Review of Systems ROS Unobtainable: All systems reviewed & are unremarkable except as noted in HPI and below Patient History Medical History (Updated 09/26/22 @ 22:45 by Elif Sullivan DO) Pulmonary embolus Social History Smoking Status: Never smoker Smoking Status: Never smoker alcohol intake frequency: 0-2 drinks per day Substance Use Type: does not use Exam Initial Vital Signs Initial Vital Signs: Vital Signs Temperature 97.8 F 09/26/22 16:58 Pulse Rate 55 L 09/26/22 16:58 Respiratory Rate 20 09/26/22 16:58 Blood Pressure 119/58 L 09/26/22 16:58 Pulse Oximetry 96 09/26/22 16:58 Oxygen Delivery Method Room Air 09/26/22 16:58 GENERAL: Alert 72-year-old female and in no acute distress. HEENT: Head atraumatic,EOMI, pupils reactive, face symmetric, moist mucous membranes CARDIOVASCULAR: Regular rate and rhythm without murmurs, rubs or gallops. RESPIRATORY: Breath sounds equal bilaterally, no wheezes rales or rhonchi. ABDOMEN: Soft, nontender. Normoactive bowel sounds all 4 quadrants. No guarding or rebound. EXTREMITIES: Normal range of motion, no clubbing or edema. Neurovascularly intact. Pelvis stable no hip pain bilaterally Left lower extremity contusion and bruising noted over left knee strong distal pedal pulse Right lower extremity some small abrasions but able to flex and extend knee NEUROLOGICAL: Alert and oriented x4. SKIN: Warm, dry, no laceration, no petechiae, no rashes or lesions. Procedures Orthopedic Splinting/Casting Injury #1: Side: left Lower Extremity Injury Location: knee Lower Extremity Immobilizer: knee immobilizer Course Orders Ordered: ED Orders 09/26/22 20:11 Ct Knee left without con Stat Discontinued Medications Hydrocodone Bitart/Acetaminophen (Hydrocodone/Acet 5/325 Tablet) 1 tab PO NOW ONE Stop: 09/26/22 20:38 Last Admin: 09/26/22 20:52 Dose: 1 tab Documented By: ROGERS Ondansetron HCl (Ondansetron 4 Mg Odt) 4 mg SL NOW ONE Stop: 09/26/22 20:38 Last Admin: 09/26/22 20:41 Dose: 4 mg Documented By: DENTON Ondansetron HCl (Ondansetron 4 Mg/2 Ml Inj) 4 mg IV NOW ONE Stop: 09/26/22 21:24 Last Admin: 09/26/22 22:12 Dose: Not Given Documented By: ROGERS Ondansetron HCl (Ondansetron 4 Mg Odt) 4 mg SL NOW ONE Stop: 09/26/22 21:30 Last Admin: 09/26/22 21:31 Dose: 4 mg Documented By: ROGERS Vital Signs Vital signs: Vital Signs - 8 hr 09/26/22 16:58 09/26/22 20:09 Temperature 97.8 F Pulse Rate 55 L 61 Respiratory Rate 20 18 Blood Pressure 119/58 L 188/86 H Pulse Oximetry 96 97 Oxygen Delivery Method Room Air Room Air MDM - Fall Imaging Data Extremity x-ray #1: Radiologist's Impression: PROCEDURE:? XR KNEE LT 3V ? INDICATIONS:? GLF with L knee pain ? TECHNIQUE:? 3 views of the knee were acquired.? ? COMPARISON:? [facility], CT, CT HEAD/BRAIN WO CON, 09/26/2022, 17:23.? [facility], CT, CT CERVICAL SPINE WO CON, 09/26/2022, 17:23. ? FINDINGS:? ? Bones:? No fractures or dislocations.? No suspicious bony lesions.? ? There is at least moderate medial femorotibial joint space narrowing seen, with associated remodeling changes including subchondral sclerosis and osteophyte formation along the jointline.? Milder degenerative changes are seen elsewhere.? ? Soft tissues:? There is a moderate to large joint effusion.? No suspicious soft tissue calcifications.? ? ? IMPRESSION:? Moderate to large joint effusion. ? No focal bony abnormality is identified by plain film. ? Focal medial femorotibial joint space narrowing. ? If it would be helpful for clinical management decision making, please consider a dedicated, scheduled knee MRI for further evaluation (assuming that there is no contraindication).? ? ? Dictated by: Wilver Hardy M.D. on 09/26/2022 at 16:56 ? ? CT scan - head: Radiologist's Impression: PROCEDURE:? CT HEAD/BRAIN WO CON ? INDICATIONS:? fall on xeralto ? TECHNIQUE:? Noncontrast 4.5 mm thick angled axial sections acquired from the foramen magnum to the vertex, with coronal and sagittal reformats.? For radiation dose reduction, the following was used:? automated exposure control, adjustment of mA and/or kV according to patient size.? ? COMPARISON:? [facility], CR, XR KNEE LT 3V, 09/26/2022, 17:14.? [facility], CT, CT CERVICAL SPINE WO CON, 09/26/2022, 17:23. ? FINDINGS:? Image quality:? Mild streak artifact can be seen through the skull base. ? CSF spaces:? Basal cisterns are patent.? No extra-axial fluid collections.? The ventricles are symmetric in size and shape.? ? Brain:? No intracranial bleeds or masses.? There is cerebral volume loss for age, with resultant ventricular and sulcal prominence.? There are periventricular and deep white matter chronic small vessel ischemic changes.? There is intracranial internal carotid artery atherosclerosis.? ? Skull and face:? Calvarium and visualized facial bones appear intact, without suspicious lesions.? ? Sinuses:? Visualized sinuses and mastoids are clear.? IMPRESSION:? No acute intracranial hemorrhage is seen.? ? No acute intracranial process is seen.? ? ? Dictated by: Wilver Hardy M.D. on 09/26/2022 at 16:59 ? ? CT - cervical spine: Radiologist's Impression: PROCEDURE:? CT CERVICAL SPINE WO CON ? INDICATIONS:? fall on xeralto ? TECHNIQUE:? Noncontrast 3 mm thick sections acquired from the skull base to the T4 level.? Sagittal and coronal reformats were then constructed.? For radiation dose reduction, the following was used:? automated exposure control, adjustment of mA and/or kV according to patient size.? ? COMPARISON:? [facility], CR, XR KNEE LT 3V, 09/26/2022, 17:14.? [facility], CT, CT HEAD/BRAIN WO CON, 09/26/2022, 17:23. ? FINDINGS:? Image quality:? This examination is somewhat limited by quantum mottle artifact.? ? Bones:? No fractures or dislocations.? Visualized superior ribs are intact.? ? There is overall straightening of the normal cervical lordosis. Focal degenerative change is seen involving the C1-C2 interface anteriorly.? There is [id number] disc space narrowing seen at C5-C6, with moderate disc space narrowing at C6-C7.? Endplate irregularity and sclerosis are seen, which are worst at C6-C7.? Several levels of posteriorly directed endplate osteophytes are seen, including at C5-C6. ? Soft tissues:? Prevertebral soft tissues are normal in thickness.? No paravertebral hematomas.? No apical pneumothoraces.? ? ? IMPRESSION:? Negative for acute cervical spine fracture. ? Cervical spine degenerative changes are seen, which are worst inferiorly. ? ? ? Dictated by: Wilver Hardy M.D. on 09/26/2022 at 16:57 ? ? CT Knee: Radiologist's Impression: PROCEDURE:? CT KNEE LEFT WITHOUT CON ? INDICATIONS:? left knee pain ? TECHNIQUE:? Noncontrast 1-1.5 mm axial sections acquired from the mid-patella to the proximal tibia, with coronal and sagittal reformats.? ? COMPARISON:? [facility], CR, XR KNEE LT 3V, 09/26/2022, 17:14. ? FINDINGS:? Image quality:? Excellent.? ? Bones:? There is a minimally displaced patellar fracture.? Remaining visualized osseous structures appear intact.? There is tricompartmental osteophytosis.? Severe joint space narrowing demonstrated in the medial compartment with subchondral sclerosis and subchondral cystic changes.? There is moderate joint space narrowing in the lateral compartment. ? Soft tissues:? There is a moderate to large joint effusion with a small lipohemarthrosis. ?The quadriceps and patellar tendons appear intact.? Mild thickening of the proximal patellar tendon is suggestive of tendinopathy.? There is mild prepatellar soft tissue swelling.? The visualized musculature appears preserved. ? ? IMPRESSION:? ? 1. Minimally displaced patellar fracture. ? 2. Moderate to large joint effusion with a small lipohemarthrosis.? ? 3. Tricompartmental osteoarthritic changes including severe joint space narrowing in the medial compartment.? Dictated by: Dillan Mayo M.D. on 09/26/2022 at 21:53 ? [facility] Narrative Medical decision making narrative: The patient 72-year-old female presents after mechanical fall. Significant pain in her knee. X-ray shows significant joint effusion. CT done to rule out any occult fracture it does show a minor patellar fracture. She is placed in a knee immobilizer. She has multiple allergies to medication opiates seem to cause her nausea. We attempted to give her Zofran and then a hydrocodone for pain however continue to make her nauseous and now she is complaining pruritus. She does not want any more pain medication. She has crutches in the car and does not need anymore. Discharge Plan Departure Patient Disposition: Home Clinical Impression: Patellar fracture Qualifiers: Encounter type: initial encounter Fracture type: closed Fracture alignment: displaced Laterality: left Instructions: DI for Patella Fracture Activity Restrictions/Additional Instructions: *You have been diagnosed with patellar fracture *What to do: Wear immobilizer at all times use crutches elevate and ice. Expect swelling and bruising to worsen *Continue to take medications as directed *Follow up with your primary care provider in 2-3 days or call [phone] Call orthopedics tomorrow to schedule follow-up appointment *Return to ER if you should have increased pain swelling or any new, worsening or concerning symptoms Prescriptions: No Action clonazepam 2 mg tablet 2 mg PO DAILY zolpidem 10 mg tablet 10 mg PO QHS doxycycline hyclate 100 mg tablet 100 mg PO BID Qty: 14 0RF albuterol sulfate 90 mcg/actuation HFA aerosol inhaler 1 puff INHALATION Q4-6H PRN (Reason: shortness of breath or wheezing) Qty: 8 0RF Rx Instructions: administer with spacer benzonatate [Tessalon Perles] 100 mg capsule 100 mg PO TID PRN (Reason: cough) Qty: 20 0RF Referrals: Rich Jorge MD [Primary Care Provider] - Vinita Butterfield MD [Physician] - Stand Alone Forms: Patient Portal/API
[2022-09-26] MEDS: ONDANSETRON 4 MG ODT SL ×2 (20:41→21:31)
--- NOTE | 2022-09-26 20:50 | PC.NURSE ---
Pt is refusing BP.
[2022-09-26] MEDS: HYDROCODONE/ACET 5/325 TABLET 1 TAB PO (20:52)
== END 2022-09-26 23:23 | disposition home or self-care (01) ==
PROVIDERS: Emergency Provider Emergency Medicine; PCP Internal Medicine
DX: S82.002A Unspecified fracture of left patella, initial encounter for closed fracture (principal); S09.90XA Unspecified injury of head, initial encounter; Z79.01 Long term (current) use of anticoagulants; W01.0XXA Fall on same level from slipping, tripping and stumbling without subsequent striking against object, initial encounter
CPT/HCPCS: 70450; 72125; 73562; 73700; 99284